=== PATIENT | female | born 1965 | race Caucasian/White ===

== ENCOUNTER 2018-11-22 09:13 | Inpatient (IN) | payer BC ==
[2018-11-22] MEDS ORDERED: Morphine 4 MG/ML VIAL ONE (09:50)
[2018-11-22 10:01] LABS: #Lymphocytes 1.6 thou/uL (1.20-3.40); #Monocytes 0.6 thou/uL (0.11-0.59); #Neutrophils 10.2 thou/uL (1.40-6.50); %Basophils 0.2 % (0.0-1.0); %Eosinophils 0.3 % (0.0-10.0); %Lymphocytes 12.6 % (21.0-51.0); %Monocytes 4.8 % (0.0-10.0); %Neutrophils 82.1 % (42.0-75.0); Hemoglobin 9.1 g/dL (12.0-16.0); Mean Corpuscular HGB CONC 33.3 g/dL (32.0-36.0); Mean Corpuscular Hemoglobin 30.9 pg (27.0-31.0); Mean Corpuscular Volume 92.6 fL (78.0-98.0); Mean Platelet Volume 10.8 fL (7.4-10.4); Platelet Count 172 thou/uL (130-400); RBC Distribution Width 11.7 % (11.5-14.5); Red Blood Cell (RBC) Count 2.94 mill/uL (4.20-5.40); White Blood Cell (WBC) Count 12.4 thou/uL (4.8-10.8)
--- NOTE | 2018-11-22 10:11 | RAD ---
FExam: Chest one view HISTORY:Syncope Comparison: None FINDINGS: Lungs: No masses or consolidation. Cardiac silhouette: Normal Pulmonary vessels: Normal Pleural Spaces: Clear Pneumothorax: None Osseous abnormalities: None IMPRESSION: No acute cardiopulmonary process.
[2018-11-22 10:15] LABS: ALT (SGPT) 25 U/L (8-55); AST (SGOT) 19 U/L (5-34); Albumin 3.5 g/dL (3.5-5.0); Alcohol Less than 10 mg/dL (Less than 10); Alkaline Phosphatase 95 U/L (40-150); Anion Gap 13 mmol/L (10-20); BUN (Urea Nitrogen) 30 mg/dL (9.8-20.1); Bilirubin, Total 0.4 mg/dL (0.2-1.2); Calc. Creatinine Clearance 0 mL/min (70-130); Calcium 9.9 mg/dL (7.8-10.44); Carbon Dioxide 28 mmol/L (22-29); Chloride 107 mmol/L (98-107); Estimated GFR-MDRD 33; Globulin 1.8 g/dL (2.4-3.5); Glucose 231 mg/dL (70-105); Lipase 4 U/L (8-78); Potassium 4.4 mmol/L (3.5-5.1); Protein, Total 5.3 g/dL (6.0-8.3); Sodium 144 mmol/L (136-145)
[2018-11-22 11:43] LABS: INR-International Normal Ratio 1.2; PTT 28.6 SEC (22.9-36.1); Prothrombin Time 15.1 SEC (12.0-14.7)
--- NOTE | 2018-11-22 11:52 | CT ---
CT ABDOMEN AND PELVIS: Date: 11/22/18 COMPARISON: 05/10/13. HISTORY: Nausea, bloated, pain, syncope, recent colonoscopy. TECHNIQUE: Axial CT imaging at 5 mm intervals from the lung bases through the pubic symphysis with intravenous c ontrast. Coronal reformatted imaging obtained. FINDINGS: The imaged lung bases appear unremarkable, aside from a stable granuloma/nodule on image 6, unchanged when compared to the 2013 exam. No free intraperitoneal air is evident. Cholecystectomy clips are pr esent with associated dilation of the CBD. No discrete focal liver lesion is identified. The hepatic parenchyma is heterogeneous and the peripheral contour is slightly irregular, suspicious for possible cirrhosis. Pancreas is atrophic and there is diffuse dilation of pancreatic duct with extensive calcification of the pancreas suggesting chronic pancreatitis. There is a large hypo/isodense mass in the left upper quadrant, inseparable from the lateral aspect o f the spleen. There is associated deformity of the spleen. This abnormality measures 9.0 cm AP dimens ion, 7.3 cm transverse dimension, and 7.6 cm in craniocaudal dimension. This is most consistent with a subcapsular hemorrhage of the spleen and/or prominent splenic laceration. In addition, there is ext ensive free fluid throughout the abdomen/pelvis, fluid within the pelvis demonstrating Hounsfield uni ts in the 40-45 range, and fluid within the left paracolic gutter demonstrating Hounsfield units in t he 40 range. There is also free fluid in the perihepatic region on the right. The density of this flu id is suspicious for diffuse hemoperitoneum. The adrenal glands appear grossly unremarkable. There is a focal area of cortical thinning involving the upper pole right kidney with associated calc ification. Multiple subcentimeter nonobstructing renal calculi are noted bilaterally, left more numer ous than right. Limited assessment of the bowel without oral contrast media demonstrates no evidence for bowel obstru ction. Vascular structures of the abdomen/pelvis appear unremarkable. No lymphadenopathy is noted within the abdomen or pelvis. The osseous structures demonstrate no acute findings. IMPRESSION: 1. Large lesion associated with the spleen, most consistent with an acute hemorrhagic abnormality, w hich may represent a combination of splenic laceration and subcapsular splenic hematoma. This deforms the spleen and there is significant free fluid within the abdomen/pelvis demonstrating Hounsfield un its concerning for hemoperitoneum. 2. Irregularity of the hepatic parenchyma suggests cirrhotic change. 3. Numerous chronic-appearing findings, including findings suggesting chronic pancreatitis. Results called to Dr. Ayala at 1025 hours on 11/22/18. CODE CR. POS: FLORESITA
[2018-11-22] MEDS ORDERED: ISOVUE-370 76%-LOCM 1 ML ONE (11:57)
[2018-11-22 12:40] LABS: Hemoglobin 8.3 g/dL (12.0-16.0)
[2018-11-22] MEDS ORDERED: Morphine 4 MG/ML VIAL SLOW IVP PRN (12:40)
[2018-11-22] MEDS ORDERED: Insulin Regular 300 UNITS/3 ML VIAL SC PRN (12:40)
[2018-11-22] MEDS ORDERED: HumaLOG 300 UNITS/3 ML VIAL SC PRN (12:40)
[2018-11-22] MEDS ORDERED: Dextrose 50% Abboject 50 ML SYRINGE SLOW IVP PRN (12:40)
[2018-11-22] MEDS ORDERED: Ondansetron PF 4 MG/2 ML Vial IVP PRN (12:40)
[2018-11-22] MEDS ORDERED: Dextrose 5% in Water 1,000 ML IV PRN (12:40)
[2018-11-22] MEDS ORDERED: Zolpidem Tartrate 5 MG TAB PO PRN (12:48)
[2018-11-22] MEDS ORDERED: Morphine 2 MG/ML SYRINGE SLOW IVP PRN (13:05)
--- NOTE | 2018-11-22 13:08 | HP ---
HISTORY OF PRESENT ILLNESS: Nelia Martin is a 53-year-old female, who on Thursday, 3 days ago had a colonoscopy at the [facility]. She did not have polypectomy. She reports normal colonoscopy. She has chronic intermittent pain in left upper quadrant. She had pain on Thursday that she thought was the same, although this pain was a little worse. On Thursday, she developed more pain and she presented to the emergency room today, evaluated, and a CAT scan of the abdomen and pelvis revealed possible splenic hematoma with free fluid in perihepatic and abdominal cavity. Suspect blood. This was an IV, no oral contrast CAT scan. No free air was seen. She had hepatic changes suspicious for cirrhosis. She had changes of chronic pancreatitis. She had changes of spleen, suspicious for subcapsular hematoma, hemorrhage, or splenic laceration. There was extensive free fluid in the abdomen and pelvis. Changes in the right kidney consistent with a partial nephrectomy, which was performed in the past for benign disease robotically. The patient states her normal blood pressure is 110/70 in the emergency room, heart rate has been 80, blood pressure mostly 110 to 105 systolic. She did dip on one occasion just prior to my arrival to 80. Her last hemoglobin was several years ago and was 15. Her hemoglobin today in the emergency room is 9.1, white count is 12, platelet counts are 73,000. PT 15 and INR 1.2. PTT 28.6. Repeat hemoglobin is pending now. Last hemoglobin checked at 0900. ALLERGIES: NONE. SOCIAL HISTORY: Tobacco none. Alcohol, none for 3 years. Abuse prior to that. HOME MEDICATIONS: 1. Ambien. 2. Altace 5 mg b.i.d. 3. Nitrofurantoin 100 mg at bedtime. 4. Insulin 10 units subcu t.i.d. 5. Hydrocodone p.r.n. pain. 6. Escitalopram oxalate 10 mg daily. 7. Doxycycline 40 mg daily. PAST SURGICAL HISTORY: Laparoscopic cholecystectomy that performed in 2002. History of pancreatitis in 2011 for alcoholism. Changes of chronic pancreatitis seen on that scan. Past history of partial right nephrectomy for benign disease, robotic at [facility] in [place]. Two C-sections. She is followed by Alex Hannah. Dr. Zafar for diabetes. PAST MEDICAL HISTORY: Diabetes mellitus, cirrhosis, hypertension. PHYSICAL EXAMINATION: VITAL SIGNS: Blood pressure 110/70, heart rate 80, respiratory rate 18. HEAD, EYES, EARS, NOSE, AND THROAT: Unremarkable. LUNGS: Clear to auscultation. CARDIAC: Regular rate and rhythm without murmur or gallop. ABDOMEN: Soft, mildly protuberant. Voluntary guarding. No peritoneal signs. EXTREMITIES: Unremarkable. ASSESSMENT/PLAN: 1. Splenic bleed after colonoscopy. We will plan on following her hemoglobin. There is no active extravasation seen on CAT scan. She has been relatively hemodynamically stable. We will watch her in IMCU, where frequent hemoglobins. She may need a transfusion pending her clinical course. Consideration for embolization could be given. Possible splenectomy may be necessary. Follow clinically. 2. Diabetes mellitus. 3. History of cirrhosis, alcohol abuse. 4. Colonoscopy 3 days ago. Job ID: [id number]
[2018-11-22 14:12] VITALS: BMI 21.4
[2018-11-22] MEDS: Acetaminophen 1,000 MG in Premix Bag 1 BAG IVPB SCH ×2 (14:39→21:08)
[2018-11-22] MEDS: Sodium Chloride 0.45% 1,000 ML IV SCH ×2 (14:39→21:10)
--- NOTE | 2018-11-22 18:07 | PRG ---
DATE OF SERVICE: 11/22/2018 SUBJECTIVE: Nelia Martin is doing fairly well. Her pain is no worse. OBJECTIVE: LUNGS: Clear to auscultation. NEUROLOGIC: She is mentating normal. ABDOMEN: Soft, mild tenderness. No guarding or rebound. VITAL SIGNS: Heart rate is 80, blood pressure drops down into the low 80s at times. LABORATORY DATA: Her presenting hemoglobin was 9.1, it is now 8.3. ASSESSMENT AND PLAN: We will give her 1 unit of blood and continue to monitor her hemoglobin. I do not think she has any ongoing bleeding, but this is just manifestation of the bleeding she has already had. We will continue to monitor her closely in ICU. Job ID: [id number]
[2018-11-22 22:07] LABS: Hemoglobin 9.7 g/dL (12.0-16.0)
[2018-11-23] MEDS: Acetaminophen 1,000 MG in Premix Bag 1 BAG IVPB SCH ×2 (02:32→09:17)
[2018-11-23] MEDS: Sodium Chloride 0.45% 1,000 ML IV SCH (02:33)
[2018-11-23 07:30] LABS: #Eosinphils 0.1 thou/uL (0.0-0.7); #Lymphocytes 2.1 thou/uL (1.20-3.40); #Monocytes 0.4 thou/uL (0.11-0.59); #Neutrophils 4.1 thou/uL (1.40-6.50); %Basophils 0.6 % (0.0-1.0); %Eosinophils 1.1 % (0.0-10.0); %Lymphocytes 30.7 % (21.0-51.0); %Neutrophils 61.7 % (42.0-75.0); Hemoglobin 8.7 g/dL (12.0-16.0); Mean Corpuscular HGB CONC 32.9 g/dL (32.0-36.0); Mean Corpuscular Volume 91.1 fL (78.0-98.0); Platelet Count 136 thou/uL (130-400); RBC Distribution Width 12.3 % (11.5-14.5); Red Blood Cell (RBC) Count 2.89 mill/uL (4.20-5.40); White Blood Cell (WBC) Count 6.7 thou/uL (4.8-10.8)
[2018-11-23 07:58] LABS: Anion Gap 9 mmol/L (10-20); BUN (Urea Nitrogen) 16 mg/dL (9.8-20.1); Calc. Creatinine Clearance 71 mL/min (70-130); Calcium 8.3 mg/dL (7.8-10.44); Carbon Dioxide 24 mmol/L (22-29); Chloride 111 mmol/L (98-107); Estimated GFR-MDRD 78; Glucose 117 mg/dL (70-105); Potassium 3.9 mmol/L (3.5-5.1); Sodium 140 mmol/L (136-145)
[2018-11-23] MEDS ORDERED: Escitalopram Oxalate 10 mg Tablet PO SCH (09:00)
[2018-11-23] MEDS ORDERED: Ramipril 5 MG CAP PO SCH (09:00)
[2018-11-23] MEDS ORDERED: Polyethylene Glycol 3350 17 GM Packet PO SCH (09:00)
[2018-11-23] MEDS ORDERED: Pantoprazole 40 MG VIAL IVP SCH (09:00)
[2018-11-23] MEDS ORDERED: Acetaminophen 500 MG TAB PO PRN (10:00)
[2018-11-23] MEDS ORDERED: traMADol HCl 50 MG TAB PO PRN ×2 (10:00)
[2018-11-23] MEDS ORDERED: Ibuprofen 600 MG TAB PO PRN (10:03)
[2018-11-23] MEDS: Pancrelipase DR 12000 1 CAP PO SCH ×2 (11:57→16:27)
[2018-11-23 15:33] LABS: #Lymphocytes 1.9 thou/uL (1.20-3.40); #Monocytes 0.5 thou/uL (0.11-0.59); #Neutrophils 5.6 thou/uL (1.40-6.50); %Basophils 0.3 % (0.0-1.0); %Eosinophils 0.5 % (0.0-10.0); %Monocytes 5.7 % (0.0-10.0); %Neutrophils 69.5 % (42.0-75.0); Hemoglobin 8.8 g/dL (12.0-16.0); Mean Corpuscular Hemoglobin 31.3 pg (27.0-31.0); Mean Corpuscular Volume 91.9 fL (78.0-98.0); Mean Platelet Volume 9.5 fL (7.4-10.4); Platelet Count 128 thou/uL (130-400); RBC Distribution Width 12.2 % (11.5-14.5); White Blood Cell (WBC) Count 8.1 thou/uL (4.8-10.8)
[2018-11-23] MEDS: HumaLOG 300 UNITS/3 ML VIAL SC SCH (16:27)
[2018-11-24 04:58] LABS: #Eosinphils 0.1 thou/uL (0.0-0.7); #Lymphocytes 2.1 thou/uL (1.20-3.40); #Monocytes 0.5 thou/uL (0.11-0.59); #Neutrophils 6.1 thou/uL (1.40-6.50); %Basophils 0.4 % (0.0-1.0); %Eosinophils 0.6 % (0.0-10.0); %Lymphocytes 23.7 % (21.0-51.0); %Monocytes 5.6 % (0.0-10.0); %Neutrophils 69.7 % (42.0-75.0); Mean Corpuscular Hemoglobin 31.3 pg (27.0-31.0); Mean Corpuscular Volume 92.2 fL (78.0-98.0); Mean Platelet Volume 10.1 fL (7.4-10.4); Platelet Count 140 thou/uL (130-400); RBC Distribution Width 12.2 % (11.5-14.5); Red Blood Cell (RBC) Count 2.87 mill/uL (4.20-5.40); White Blood Cell (WBC) Count 8.7 thou/uL (4.8-10.8)
[2018-11-24 07:13] VITALS: TEMP 98.6
--- NOTE | 2018-11-24 08:06 | PRG ---
DATE OF SERVICE: 11/24/2018 SUBJECTIVE: Ms. Martin is doing well today. Her pain is much better. She has not required any analgesics. OBJECTIVE: VITAL SIGNS: Temperature 98.6, heart rate 76, blood pressure 119/67. LUNGS: Clear to auscultation. CARDIAC: Regular rate and rhythm. No murmur or gallop. ABDOMEN: Soft, nontender. EXTREMITIES: Unremarkable. LABORATORY DATA: Hemoglobin 9.0. She was admitted with a hemoglobin of 8.3. She received 1 units of blood day and a half ago when her hemoglobin remained stable at 8.7, 8.89 postoperatively. The patient's pain has resolved. ASSESSMENT AND PLAN: Resolved post colonoscopy splenic bleed. Avoid high impact activities. May be discharged home today. Taking [id number] Tylenol, Advil for pain. Take out vitamins and iron [id number]. Follow up in my office in 2 weeks with a CBC. Job ID: [id number]
[2018-11-24] MEDS: Pancrelipase DR 12000 1 CAP PO SCH (08:57)
[2018-11-24] MEDS: HumaLOG 300 UNITS/3 ML VIAL SC SCH (08:57)
[2018-11-24 09:03] VITALS: BP 129/69
--- NOTE | 2018-11-24 13:39 | DIS ---
DATE OF ADMISSION: 11/22/2018 DATE OF DISCHARGE: 11/24/2018 DISCHARGE DIAGNOSES: Splenic bleed, post colonoscopy, suspect cirrhosis. Admission hemoglobin 8.3, received 1 unit of blood. Discharge hemoglobin 9. HISTORY: A 53-year-old female, alcohol cessation 3 to 4 years ago, suspect cirrhosis, underwent screening colonoscopy on Thursday, started having some discomfort on Thursday night and Thursday. She presented to the emergency room and found to have a hemoglobin in the 9, blood pressure in the 90s to 100. CAT scan demonstrating findings consistent with perisplenic hematoma. Perihepatic fluid, suspect blood, suspect bleeding post colonoscopy from splenic injury. The patient observed overnight in the IMCU. Her hemoglobin dropped to 8.3, but her blood pressure dropped to the 80s. She was given 1 unit of blood and her hemoglobin remained stable at 9 and she has been discharged home at this time to resume her home medications and follow up in my office in 2 weeks. Diet and activity as tolerated. Avoid high impact activities. Job ID: [id number]
== END 2018-11-24 09:20 | disposition home or self-care (01) | DRG 920 ==
LOC: ERS 09:13 → IMCU/EMU 12:47
PROVIDERS: ADMIT Specialist; ATTEND Specialist
PROC: 30233N1 Transfusion of Nonautologous Red Blood Cells into Peripheral Vein, Percutaneous Approach (ICD-10-PCS; principal; 2018-11-22)
DX: D78.22 Postprocedural hemorrhage of the spleen following other procedure (principal); K86.0 Alcohol-induced chronic pancreatitis; K70.30 Alcoholic cirrhosis of liver without ascites; E11.9 Type 2 diabetes mellitus without complications; I10 Essential (primary) hypertension; Y84.8 Other medical procedures as the cause of abnormal reaction of the patient, or of later complication, without mention of misadventure at the time of the procedure; Z90.49 Acquired absence of other specified parts of digestive tract; Z90.5 Acquired absence of kidney; Z79.899 Other long term (current) drug therapy; Z79.4 Long term (current) use of insulin; Z87.19 Personal history of other diseases of the digestive system
CPT/HCPCS: 36415; 36416; 36430; 71045; 74177; 80048; 80053; 80307; 82140; 83690; 84484; 85025; 85610; 85730; 86850; 86900; 86901; 93005; 96361; 96374; C9113; J0131; J2270; P9016; Q9966

== ENCOUNTER 2018-12-20 10:17 | Outpatient (CLI) | payer BC ==
--- NOTE | 2018-12-20 12:19 | ULT ---
GALLBLADDER ULTRASOUND: Date: 12/20/18 HISTORY: Right upper quadrant pain. FINDINGS: Real-time imaging of the right upper quadrant shows the gallbladder to have been removed. The common bile duct is dilated at 8 mm, but this could just be on the basis of cholecystectomy. Liver measures approximately 13.0 cm in length. No focal abnormalities. Right kidney is within normal limits of size . The pancreas is obscured. IMPRESSION: Post cholecystectomy change. Possible slight fatty change to the liver. No focal lesions. POS: [facility]
== END 2018-12-20 10:18 | disposition home or self-care (01) ==
LOC: BICULT 10:17
PROVIDERS: ATTEND Family Medicine
DX: K76.0 Fatty (change of) liver, not elsewhere classified (principal); K86.89 Other specified diseases of pancreas; Z90.49 Acquired absence of other specified parts of digestive tract
CPT/HCPCS: 76705

== ENCOUNTER 2021-03-12 15:09 | Outpatient (CLI) | payer BC | END 2021-03-12 15:10 | disposition home or self-care (01) | LOC: BICMAMMO 15:09 | PROVIDERS: ATTEND Family Medicine | DX: Z12.31 Encounter for screening mammogram for malignant neoplasm of breast (principal); Z80.3 Family history of malignant neoplasm of breast | CPT/HCPCS: 77063; 77067 ==

== ENCOUNTER 2022-09-30 02:48 | Emergency (ER) | payer BC ==
[2022-09-30 03:18] LABS: Bacteria/HPF None Seen HPF (None Seen); Bilirubin Negative (Negative); Blood, Urine 3+ (Negative); Clarity Turbid (Clear); Glucose, Urine (Dipstick) Normal (Negative); Ketone, Urine Negative (Negative); Leukocyte 25 Leu/uL (Negative); Nitrite Negative (Negative); Protein, Urine (Dipstick) 10 mg/dL (Neg-Trace); RBC/HPF Greater than 50 HPF (0-3); Specific Gravity, Urine 1.021 (1.002-1.036); Squamous Epithelial None Seen HPF (0-3); Urobilinogen Normal mg/dL (Less than 2); pH, Urine 5.5 (5.0-9.0)
[2022-09-30] MEDS ORDERED: Ondansetron PF 4 MG/2 ML Vial ONE (04:03)
[2022-09-30] MEDS ORDERED: Ketorolac Tromethamine 30 MG/ML VIAL ONE (04:03)
[2022-09-30 04:40] LABS: #Basophils 0.1 thou/uL (0.0-0.2); #Eosinphils 0.1 thou/uL (0.0-0.7); #Lymphocytes 1.6 thou/uL (1.20-3.40); #Monocytes 0.9 thou/uL (0.11-0.59); #Neutrophils 13.4 thou/uL (1.40-6.50); %Basophils 0.4 % (0.0-1.0); %Eosinophils 0.6 % (0.0-10.0); %Lymphocytes 9.7 % (21.0-51.0); %Monocytes 5.7 % (0.0-10.0); %Neutrophils 83.5 % (42.0-75.0); Hemoglobin 13.4 g/dL (12.0-16.0); Mean Corpuscular HGB CONC 32.6 g/dL (32.0-36.0); Mean Corpuscular Hemoglobin 31.9 pg (27.0-31.0); Mean Corpuscular Volume 97.7 fl (78.0-98.0); Mean Platelet Volume 10.2 fL (7.4-10.4); Platelet Count 172 10x3/uL (130-400); RBC Distribution Width 11.4 % (11.5-14.5); Red Blood Cell (RBC) Count 4.21 mill/uL (4.20-5.40); White Blood Cell (WBC) Count 16.1 10x3/uL (4.8-10.8)
[2022-09-30 04:59] LABS: ALT (SGPT) 27 U/L (8-55); AST (SGOT) 22 U/L (5-34); Albumin 4.1 g/dL (3.5-5.0); Alkaline Phosphatase 100 U/L (40-110); Anion Gap 11 mmol/L (10-20); BUN (Urea Nitrogen) 23 mg/dL (9.8-20.1); Bilirubin, Total 0.4 mg/dL (0.2-1.2); Calc. Creatinine Clearance 0 mL/min (70-130); Calcium 9.2 mg/dL (7.8-10.44); Carbon Dioxide 23 mmol/L (22-29); Chloride 110 mmol/L (98-107); Estimated GFR 35; Globulin 2.5 g/dL (2.4-3.5); Glucose 133 mg/dL (70-105); Potassium 3.9 mmol/L (3.5-5.1); Protein, Total 6.6 g/dL (6.0-8.3); Sodium 140 mmol/L (136-145)
[2022-09-30] MEDS ORDERED: HYDROmorphone 0.5 MG/0.5 ML SYRINGE ONE (05:14)
== END 2022-09-30 07:22 | disposition home or self-care (01) ==
LOC: ERS 02:48
DX: N13.2 Hydronephrosis with renal and ureteral calculous obstruction (principal); D72.829 Elevated white blood cell count, unspecified; E11.9 Type 2 diabetes mellitus without complications; Z79.4 Long term (current) use of insulin
CPT/HCPCS: 36415; 74176; 80053; 81003; 81015; 85025; 96374; 96375; J1170; J1885; J2405